=== PATIENT | female | born 1985 | race African-American/Black ===

== ENCOUNTER 2017-05-12 20:38 | Emergency (ER) | payer MEDICAID ==
[~2017-05-12] VITALS: Ht 162.6 cm; Wt 68.0 kg
[2017-05-12] MEDS ORDERED: MORPHINE SULFATE 4 MG/ML CPJ (NOT FOR IM USE) IV STA (21:45)
[2017-05-12 22:12] LABS: HEMATOCRIT. 40.9 % (36.0-48.0); HEMOGLOBIN. 13.7 g/dL (12.0-16.0); MEAN CORPUSCULAR HEMOGLOBIN 31.6 pg (28.0-32.0); MEAN CORPUSCULAR VOLUME 94.5 fL (81.0-99.0); MEAN PLATELET VOLUME 8.7 fl (7.4-10.4); PLATELET 187 x1000/uL (130-400); RED BLOOD CELL COUNT 4.32 mill/uL (4.2-5.4); RED CELL DISTRIBUTION WIDTH 13.6 % (11.6-14.6)
[2017-05-12 22:19] LABS: CHLORIDE 108 mEq/L (98-107)
[2017-05-12 22:22] LABS: CARBON DIOXIDE 26 mEq/L (21-32)
[2017-05-12 22:24] LABS: INR 1.1; PROTHROMBIN TIME 11.4 sec (9.4-11.6)
[2017-05-12 22:24] LABS: CLARITY URINE CLOUDY (CLEAR); COLOR URINE YELLOW (YELLOW); KETONES URINE 1+ (NEGATIVE); LEUKOCYTE ESTERASE URINE 1+ (NEGATIVE); NITRITE URINE NEGATIVE (NEGATIVE); OCCULT BLOOD URINE 2+ (NEGATIVE); PROTEIN URINE TRACE (NEGATIVE); SPECIFIC GRAVITY URINE 1.028 (1.005-1.030); UROBILINOGEN URINE 0.2 E.U./dL (0.2-1.0)
[2017-05-12 22:27] LABS: ETHANOL BLOOD < 10 mg/dL
[2017-05-12 22:31] LABS: HCG SCREEN NEGATIVE
[2017-05-12] MEDS: SODIUM CHLORIDE 0.9% 1,000 ML IV NR ×2 (22:37→23:45)
[2017-05-12 22:41] LABS: *AMPHETAMINES SCREEN URINE NEGATIVE (NEGATIVE); *BARBITURATES SCREEN URINE NEGATIVE (NEGATIVE); *BENZODIAZEPINES SCREEN URINE NEGATIVE (NEGATIVE); *COCAINE SCREEN URINE NEGATIVE (NEGATIVE); CANNABINOID URINE SCREEN NEGATIVE (NEGATIVE); METHADONE URINE SCREEN NEGATIVE (NEGATIVE); OPIATES URINE SCREEN NEGATIVE (NEGATIVE); PHENCYCLIDINE URINE SCREEN NEGATIVE (NEGATIVE)
[2017-05-12 23:03] LABS: PLATELET ESTIMATE NORMAL
[2017-05-12] MEDS: POTASSIUM CHLORIDE 20MEQ TABLET SR PO NR (23:45)
[2017-05-13] MEDS ORDERED: IOHEXOL-300 100 ML BOTTLE ONE (00:03)
[2017-05-13] MEDS: SODIUM CHLORIDE 0.9% 1,000 ML IV NR (00:39)
[2017-05-13] MEDS ORDERED: MORPHINE SULFATE 2 MG/ML CPJ (NOT FOR IM USE) IV NR (01:45)
[2017-05-13 02:20] VITALS: BP 117/83
[2017-05-13 02:35] LABS: CHLORIDE 110 mEq/L (98-107)
[2017-05-13 02:41] LABS: CARBON DIOXIDE 26 mEq/L (21-32)
== END 2017-05-13 03:10 | disposition home or self-care (01) ==
LOC: ER 20:51
DX: S00.83XA Contusion of other part of head, initial encounter (principal); S30.1XXA Contusion of abdominal wall, initial encounter; S80.12XA Contusion of left lower leg, initial encounter; S80.11XA Contusion of right lower leg, initial encounter; S40.022A Contusion of left upper arm, initial encounter; S40.021A Contusion of right upper arm, initial encounter; N39.0 Urinary tract infection, site not specified; E87.6 Hypokalemia; K50.90 Crohn's disease, unspecified, without complications; Y08.89XA Assault by other specified means, initial encounter; Y93.89 Activity, other specified; Y92.488 Other paved roadways as the place of occurrence of the external cause
CPT/HCPCS: 36415; 70450; 71010; 72125; 74177; 80048; 80053; 80305; 81001; 81025; 84484; 84703; 85025; 85610; 93005; 96361; 96374; 96375; 99285; G0482; J2270; J7030; Q9967; Z7610